=== PATIENT | male | born 1990 | race African-American/Black ===

== ENCOUNTER 2023-01-18 12:09 | Emergency (ER) | payer OTHER ==
[~2023-01-18] VITALS: Ht 175.3 cm; Wt 38.0 kg
[2023-01-18 15:41] VITALS: BP 126/76
== END 2023-01-18 15:46 | disposition home or self-care (01) ==
LOC: ER 12:09 → EEVIPCON 12:09 → ER 15:46
DX: S63.286A Dislocation of proximal interphalangeal joint of right little finger, initial encounter (principal); S62.91XA Unspecified fracture of right hand, initial encounter for closed fracture; W23.0XXA Caught, crushed, jammed, or pinched between moving objects, initial encounter; Y93.89 Activity, other specified; Y92.89 Other specified places as the place of occurrence of the external cause; Y99.8 Other external cause status
CPT/HCPCS: 26770; 73140